=== PATIENT | male | born 1975 | race Caucasian/White ===

== ENCOUNTER → 2025-03-10 | Emergency (ER) | payer OTHER ==
[~2025-03-10] VITALS: Ht 177.8 cm; Wt 104.5 kg
[~2025-03-10] MED LIST: DICY-1 PO; LOPE-232 PO; ONDA-104 PO
[2025-03-10 22:00] VITALS: TEMP 98.2
[2025-03-10] MEDS: SIMETHICONE 80 MG CHEWABLE TABLET CHEW ONE (22:54)
[2025-03-10] MEDS: LOPERAMIDE HCL 2 MG CAPSULE PO ONE (22:54)
[2025-03-10] MEDS: DICYCLOMINE HCL 10 MG CAPSULE PO ONE (22:54)
[2025-03-10] MEDS: ONDANSETRON 4 MG TABLET PO ONE (22:54)
[2025-03-10 23:06] LABS: BASOPHILS % (AUTO) 0.2 % (0.0-2.0); HEMOGLOBIN 17.9 g/dL (13.5-17.5); LYMPHOCYTES # (AUTO) 0.7 K/uL (1.0-4.8); LYMPHOCYTES % (AUTO) 8.9 % (22.0-44.0); MEAN CORPUSCULAR HEMOGLOBIN 29.2 pg (26.0-34.0); MEAN CORPUSCULAR HGB CONC 33.8 G/dL (31.0-37.0); MEAN CORPUSCULAR VOLUME 87 fL (80-100); MONOCYTES # (AUTO) 0.9 K/uL (0.1-1.0); MONOCYTES % (AUTO) 10.3 % (2.0-9.0); NEUTROPHILS # (AUTO) 6.6 K/uL (1.8-7.7); NEUTROPHILS % (AUTO) 79.6 % (40.0-70.0); PLATELET COUNT (AUTO) 326 K/uL (150-450); RED BLOOD CELL COUNT(AUTO) 6.13 MIL/uL (4.50-5.90); RED CELL DISTRIBUTION WIDTH 13.3 % (11.5-14.5); WHITE BLOOD COUNT (AUTO) 8.3 K/uL (4.5-11.0)
[2025-03-10 23:17] LABS: ANION GAP 6 mmol/L (8-16); CALCIUM, TOTAL 8.7 mg/dL (8.8-10.5); CARBON DIOXIDE 25 mmol/L (22-29); CHLORIDE 102 mmol/L (98-107); CREATININE 0.97 mg/dL (0.60-1.30); GLOMERULAR FILTR. RATE CALC > 60 mL/min (>60); GLUCOSE,RANDOM 136 mg/dL (70-110); POTASSIUM 4.3 mmol/L (3.5-5.1); SODIUM SERUM 133 mmol/L (136-145); UREA NITROGEN, BLOOD 14 mg/dL (7-18)
[2025-03-10 23:50] VITALS: BP 129/80; PULSE 97; RESP 19; O2SAT 98
== END | disposition home or self-care (01) ==
LOC: EMS 21:41
DX: A08.4 Viral intestinal infection, unspecified (principal); F12.90 Cannabis use, unspecified, uncomplicated
CPT/HCPCS: 99284; 80048; 85025; 36415; Q0162